=== PATIENT | male | born 1965 | race Caucasian/White ===

== ENCOUNTER 2017-12-15 12:14 | Emergency (ER) | payer MEDICAID, OTHER ==
--- NOTE | 2017-12-15 13:38 | EDM.PDOC ---
ED HPI GENERAL MEDICAL PROBLEM - General Chief Complaint: Neuro Symptoms/Deficits Stated Complaint: VERGO AND BLOOD PRESSURE IS HIGH Time Seen by Provider: 12/15/17 13:28 Source of Information: Reports: Patient, RN Notes Reviewed History Limitations: Reports: No Limitations - History of Present Illness INITIAL COMMENTS - FREE TEXT/NARRATIVE: 52-year-old gentleman presents emergency department today complaint of dizziness , he has had several bouts of dizziness over the last couple of months he has not been evaluated for this it seems to resolve within a few minutes. His other concern today is that he measured his blood pressure home systolic blood pressure in the 150s diastolic in the 100s consulted with the nurse line at the [facility] recommended immediate report to the emergency department for further evaluation. At this time he has no symptoms - Related Data Allergies Allergy/AdvReac Type Severity Reaction Status Date / Time No Known Allergies Allergy Verified 11/17/13 13:20 Home Meds: Home Meds Pravastatin [Pravachol] 20 mg PO DAILY 11/18/13 [History] Past Medical History HEENT History: Reports: Impaired Vision Cardiovascular History: Reports: High Cholesterol Neurological History: Reports: Vertigo Other Neuro History: states feels faint at time orthostatic B/P flat 141/90 standing 153/104 Social & Family History - Tobacco Use Smoking Status *Q: Never Smoker - Caffeine Use Caffeine Use: Reports: Coffee - Alcohol Use Days Per Week of Alcohol Use: 1 Number of Drinks Per Day: 3 Total Drinks Per Week: 3 - Recreational Drug Use Recreational Drug Use: No ED ROS GENERAL - Review of Systems Review Of Systems: See Below Constitutional: Reports: No Symptoms HEENT: Reports: No Symptoms Respiratory: Reports: No Symptoms Cardiovascular: Reports: Blood Pressure Problem, Lightheadedness GI/Abdominal: Reports: No Symptoms : Reports: No Symptoms Musculoskeletal: Reports: No Symptoms Skin: Reports: No Symptoms Neurological: Reports: Dizziness ED EXAM, GENERAL - Physical Exam Exam: See Below Exam Limited By: No Limitations General Appearance: Alert, WD/WN, No Apparent Distress Head: Atraumatic, Normocephalic Neck: Normal Inspection, Supple, Non-Tender, Full Range of Motion Respiratory/Chest: No Respiratory Distress, Lungs Clear, Normal Breath Sounds, No Accessory Muscle Use Cardiovascular: Regular Rate, Rhythm, No Murmur GI/Abdominal: Soft, Non-Tender Back Exam: Normal Inspection, Full Range of Motion. No: CVA Tenderness (R), CVA Tenderness (L) Extremities: Normal Inspection, Normal Range of Motion, Non-Tender, No Pedal Edema Course - Vital Signs Last Recorded V/S: Last Vital Signs Temp 97.4 F 12/15/17 12:59 Pulse 68 12/15/17 12:59 Resp 18 12/15/17 12:59 BP 153/104 H 12/15/17 12:59 Pulse Ox - Orders/Labs/Meds Orders: Active Orders 24 hr Category Date Time Status EKG Documentation Completion [RC] ASDIRECTED Care 12/15/17 13:35 Active EKG 12 Lead [EK] Stat Ther 12/15/17 13:35 Ordered Labs: Laboratory Tests 12/15/17 12/15/17 Range/Units 13:43 13:43 WBC 4.5 (4.5-11.0) K/uL RBC 5.06 (4.30-5.90) M/uL Hgb 14.8 (12.0-15.0) g/dL Hct 43.2 (40.0-54.0) % MCV 85 (80-98) fL MCH 29 (27-31) pg MCHC 34 (32-36) % Plt Count 198 (150-400) K/uL Neut % (Auto) 63 (36-66) % Lymph % (Auto) 22 L (24-44) % [place] % (Auto) 12 H (2-6) % Eos % (Auto) 3 (2-4) % Baso % (Auto) 0 (0-1) % Sodium 140 (140-148) mmol/L Potassium 3.7 (3.6-5.2) mmol/L Chloride 102 (100-108) mmol/L Carbon Dioxide 32 (21-32) mmol/L Anion Gap 5.8 (5.0-14.0) mmol/L BUN 15 (7-18) mg/dL Creatinine 1.0 (0.8-1.3) mg/dL Est Cr Clr Drug Dosing 81.70 mL/min Estimated GFR (MDRD) > 60 (>60) Glucose 92 (74-106) mg/dL Calcium 8.6 (8.5-10.1) mg/dL Departure - Departure Time of Disposition: 14:43 Disposition: Home, Self-Care 01 Condition: Good Clinical Impression: Dizzy Referrals: Raz Oneil MD [Primary Care Provider] - Forms: ED Department Discharge Additional Instructions: Recommend sodium reduction in your diet, please keep your follow-up appointment with your regular physician that is upcoming - My Orders Last 24 Hours: My Active Orders 12/15/17 13:35 EKG Documentation Completion [RC] ASDIRECTED EKG 12 Lead [EK] Stat - Assessment/Plan Last 24 Hours: My Active Orders 12/15/17 13:35 EKG Documentation Completion [RC] ASDIRECTED EKG 12 Lead [EK] Stat Plan: Assessment Acuity = acute Site and laterality = dizziness Etiology = possibly related to hypertension Manifestations = none Location of injury = Home Lab values = EKG demonstrates a sinus rhythm no ST elevations or depressions, CBC and BMP within normal limits Plan Talked to him about decreasing his sodium intake she does use a lot of processed foods plan is to follow-up with his primary care provider in the next week for regular appointment evaluate blood pressure This note was dictated using [employer] voice recognition software please call with any questions on syntax or grammar.
== END 2017-12-15 14:50 | disposition home or self-care (01) ==
LOC: JP.ED 12:14
DX: R42 Dizziness and giddiness (principal); E78.00 Pure hypercholesterolemia, unspecified; Z79.899 Other long term (current) drug therapy
CPT/HCPCS: 36415; 80048; 85025; 93005; 99284-25